=== PATIENT | male | born 1970 | race Caucasian/White ===

== ENCOUNTER → 2019-03-13 | Outpatient (CLI) | payer OTHER ==
--- NOTE | 2019-03-13 22:00 | RADIOLOGY REPORT (SQ) ---
EXAM DESCRIPTION: MRI RT LOWER JOINT WITHOUT COMPLETED DATE/TIME: 03/13/2019 1:25 pm REASON FOR STUDY: RIGHT KNEE PAIN COMPARISON: None. TECHNIQUE: Rightknee images acquired and stored on PACS. Multiplanar images include fat sensitive s equences as T1, water sensitive sequences as FST2 or STIR, cartilage sensitive sequences as FSPD, and gradient echo sequences. LIMITATIONS: None. FINDINGS: JOINT AND BURSAE: Trace fluid. No large effusion. No loose bodies. BONE CORTEX AND MARROW: No alteration of signal to suggest marrow replacement. No worrisome bone lesi ons. No occult fracture. ACL: Major fiber bundles intact. PCL: Intact. MCL: Intact. No periligamentous edema or fluid. LCL: Intact. No periligamentous edema or fluid. MEDIAL MENISCUS: Loss of tissue consistent with previous partial meniscectomy. Suspect recurrent tea r in the posterior horn and body. Extruded appearance of the remaining meniscus tissue. LATERAL MENISCUS: Mild fraying along the free margin. MEDIAL COMPARTMENT: Mild chondral fraying without focal full-thickness defect or reactive bone change . LATERAL COMPARTMENT: Cartilage preserved. No bone bruises or reactive marrow edema. No osteophytes. 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 No underlying reactive bone change. EXTENSOR MECHANISM: Intact. Quadriceps and patella tendons normal. SOFT TISSUES: Trace Thompson's cyst. Appropriate vascular flow voids. OTHER: No other significant finding. IMPRESSION: 1. Previous medial meniscus partial resection suspected, with recurrent tear. 2. Chondral disease as above. Medial femoral condyle and medial patellar facet. No gross grade 4 le sions. 3. Other findings as above. TECHNICAL DOCUMENTATION: JOB ID: [id number] [employer]- All Rights Reserved Reading location - IP/workstation name: [email or web address]
== END ==
LOC: RAD 12:17
PROVIDERS: ATTEND Nurse Practitioner Family
DX: M25.561 Pain in right knee (principal)